=== PATIENT | male | born 1945 | race Caucasian/White ===

== ENCOUNTER 2016-09-06 11:40 | Day surgery (SDC) | payer MEDICARE, OTHER ==
[~2016-09-06] VITALS: Ht 175.3 cm; Wt 87.8 kg
[~2016-09-06 11:40] MED LIST: ASPIRIN 32325 MG/TAB PO; ATIVAN 1MG T1 MG/TAB PO; BYSTOLIC10 MG PO; COZAAR100 MG PO; MAREPA1200 MG PO; MASON NATURAL1200 MG PO; NIACIN PO; NIACIN1 TAB PO; NIACIN500 M4 PO; NITROSTAT0.4 MG/TAB SL; OSTEO-BI-FLEX 21 TAB PO; PRINIVIL20 MG; PROTONIX 40MG T40 MG PO; SLO-NIACIN500 MG PO; VITAMIN D32000 I1 PO; ZOCOR 40MG40 MG PO; ZOCOR40 MG PO
[2016-09-06 12:17] LABS: HEMATOCRIT 43.3 % (42.0-52.0); HEMOGLOBIN 15.2 g/dl (13.5-18.0); MEAN CELL VOLUME 90 fl (80.0-100.0); MEAN CORPUSCULAR HEMOGLOBIN 31 pg (27.0-31.0); MEAN CORPUSCULAR HGB CONC 35 g/dl (33.0-37.0); MEAN PLATELET VOLUME 8.8 fl (7.4-10.4); PLATELET COUNT 253 K/mm3 (130-400); RED BLOOD COUNT 4.84 M/mm3 (4.20-5.60); REDCELL DISTRIBUTION WIDTH-CV 12.3 % (11.5-14.5); WHITE BLOOD COUNT 5.9 K/mm3 (4.8-10.8)
[2016-09-06 12:25] LABS: CALCIUM 9.1 mg/dL (8.4-10.2); CREATININE, serum 0.85 mg/dL (0.66-1.25); POTASSIUM 4.4 mmol/L (3.4-5.0)
[2016-09-06 12:29] LABS: INR 1.1 (0.8-3.0); PROTHROMBIN TIME 12.2 SECONDS (9.7-12.8)
[2016-09-06 12:31] LABS: PARTIAL THROMBOPLASTIN TIME 29.6 SECONDS (26.0-37.0)
[2016-09-06 13:46] VITALS: BP 101/51; PULSE 51; TEMP 97.8
[2016-09-06 16:58] VITALS: BP 123/54; PULSE 66; TEMP 97.8
[2016-09-06] MEDS ORDERED: NORVASC 5MG5 MG/TAB PO (17:33)
[2016-09-06 20:18] VITALS: BP 124/51; PULSE 67; TEMP 97.9
[2016-09-07] VITALS (11 sets, daily range): BP systolic 101–126; BP diastolic 30–62; PULSE 50–72; TEMP 97.8–98.2
== END 2016-09-07 15:14 | disposition home or self-care (01) ==
LOC: SURG 11:40 → SDCO 11:40 → SURG 09-07 11:54 → SDCO 09-07 15:14
PROVIDERS: Internal Medicine Interventional Cardiology
DX: I25.110 Atherosclerotic heart disease of native coronary artery with unstable angina pectoris (principal); R07.89 Other chest pain
CPT/HCPCS: OP; C1760; G0378; G0379; J2250; J3010; J7030; Q9967

== ENCOUNTER → 2016-10-02 | Outpatient (CLI) | payer MEDICARE, OTHER ==
[~2016-10-02] MED LIST changes: +NORVASC 5MG5 MG/TAB PO
== END ==
LOC: COL.PUL 10:56
DX: R06.09 Other forms of dyspnea (principal)

== ENCOUNTER → 2019-07-13 | Outpatient (CLI) | payer MEDICARE, OTHER ==
[~2019-07-13] MED LIST changes: +CATAPRES 0.1MG0.1 MG PO; +LIPITOR 80MG80 MG PO; +LOPRESSOR 225 MG/TAB PO; +NORCO 325 MG-51 TAB PO; +VITAL-D1 TAB PO
[2019-07-13 09:11] LABS: HEMOGLOBIN 15.2 g/dl (13.5-18.0); MEAN CELL VOLUME 89 fl (80.0-100.0); MEAN CORPUSCULAR HEMOGLOBIN 30 pg (27.0-31.0); MEAN CORPUSCULAR HGB CONC 34 g/dl (33.0-37.0); MEAN PLATELET VOLUME 9.5 fl (7.4-10.4); PLATELET COUNT 270 K/mm3 (130-400); RED BLOOD COUNT 5.07 M/mm3 (4.20-5.60); REDCELL DISTRIBUTION WIDTH-CV 12.8 % (11.5-14.5)
[2019-07-13 09:20] LABS: CREATININE, serum 0.74 (0.66-1.25); POTASSIUM 4.2 mmol/L (3.4-5.0)
== END ==
LOC: COL.LAB 08:24
PROVIDERS: Internal Medicine Interventional Cardiology
DX: I49.5 Sick sinus syndrome (principal)

== ENCOUNTER → 2020-01-20 | Outpatient (CLI) | payer MEDICARE, OTHER ==
[2020-01-20 12:05] LABS: HEMATOCRIT 43.6 % (42.0-52.0); HEMOGLOBIN 14.9 g/dl (13.5-18.0); MEAN CELL VOLUME 89 fl (80.0-100.0); MEAN CORPUSCULAR HEMOGLOBIN 31 pg (27.0-31.0); MEAN CORPUSCULAR HGB CONC 34 g/dl (33.0-37.0); MEAN PLATELET VOLUME 9.6 fl (7.4-10.4); PLATELET COUNT 230 K/mm3 (130-400); RED BLOOD COUNT 4.89 M/mm3 (4.20-5.60); REDCELL DISTRIBUTION WIDTH-CV 12.5 % (11.5-14.5)
[2020-01-20 14:08] LABS: ANION GAP 8 mmol/L (7-16); BLOOD UREA NITROGEN 13 mg/dL (9-20); CARBON DIOXIDE 23 mmol/L (22-30); CHLORIDE 106 mmol/L (98-107); CREATININE, serum 0.79 (0.66-1.25); GLUCOSE 103 mg/dL (74-106); POTASSIUM 4.2 mmol/L (3.4-5.0); SODIUM 137 mmol/L (137-145)
[2020-01-20 14:20] LABS: TROPONIN-I < 0.012 ng/mL (0.000-0.035)
== END ==
LOC: COL.LAB 11:01
PROVIDERS: Internal Medicine Interventional Cardiology
DX: R07.89 Other chest pain (principal)

== ENCOUNTER 2021-06-15 10:40 | Day surgery (SDC) | payer MEDICARE, OTHER ==
[2021-06-15] VITALS (9 sets, daily range): BP systolic 115–146; BP diastolic 59–96; PULSE 60–63; TEMP 97.7
[~2021-06-15] VITALS: Ht 175.3 cm; Wt 90.5 kg
[~2021-06-15 10:40] MED LIST changes: +ASPIRIN E.C. 8181 MG PO; +COZAAR 50MG50 MG/TAB PO; -COZAAR100 MG PO; +NORVASC 10MG10 MG PO; -NORVASC 5MG5 MG/TAB PO; -PROTONIX 40MG T40 MG PO; +PROTONIX20 MG PO
[2021-06-15 11:31] LABS: HEMATOCRIT 39.5 % (42.0-52.0); HEMOGLOBIN 13.5 g/dl (13.5-18.0); MEAN CELL VOLUME 89 fl (80.0-100.0); MEAN CORPUSCULAR HEMOGLOBIN 31 pg (27-31); MEAN CORPUSCULAR HGB CONC 34 g/dl (33.0-37.0); MEAN PLATELET VOLUME 8.9 fl (7.4-10.4); PLATELET COUNT 240 K/mm3 (130-400); RED BLOOD COUNT 4.42 M/mm3 (4.20-5.60); REDCELL DISTRIBUTION WIDTH-CV 12.9 % (11.5-14.5)
[2021-06-15] MEDS ORDERED: MASON NATURAL2000 IU PO (11:36)
[2021-06-15] MEDS ORDERED: PLAVIX 75MG TAB75 MG PO (11:37)
[2021-06-15] MEDS ORDERED: IMDUR 60MG60 MG/TAB PO (11:37)
[2021-06-15 11:40] LABS: INR 1.2 (0.8-3.0); PROTHROMBIN TIME 13.3 SECONDS (9.7-12.8)
[2021-06-15 11:43] LABS: PARTIAL THROMBOPLASTIN TIME 27.2 SECONDS (26.0-37.0)
[2021-06-15 11:56] LABS: CALCIUM 8.3 mg/dL (8.4-10.2); CREATININE, serum 0.87 mg/dL (0.72-1.25); POTASSIUM 3.9 mmol/L (3.5-4.5)
--- NOTE | 2021-06-15 14:15 | NUR ---
Pt is back from laboratory specialist, Meño BYRNES at discussing cath results and poc. Report received from Anuradha GLOVER. Pt is awake and alert, pwd, reg and unlabored respirations. TR band to rt wrist, cms intact distal. A-paced on monitor. call light in reach, lunch ordered.
--- NOTE | 2021-06-15 17:10 | NUR ---
Pt is ready for departure. Pt did fine during his recovery. Pt was able to eat some lunch and remained stable throughout. TR band has been deflated without incident. site dressed with bandaid, folded 2x2 and coban. cms remains intact distal. I reviewed dc/rx and fu instructions with pt and his . both verbalized understanding. Pt is up and steady on his feet in his room. IV dc'd with cath intact, dressing applied. To exit via wheelchair.
== END 2021-06-15 18:07 | disposition home or self-care (01) ==
LOC: COL.CAR 10:40
PROVIDERS: Internal Medicine Interventional Cardiology
DX: I25.10 Atherosclerotic heart disease of native coronary artery without angina pectoris (principal); R06.02 Shortness of breath; R94.39 Abnormal result of other cardiovascular function study; I47.1 Supraventricular tachycardia; I10 Essential (primary) hypertension; E78.00 Pure hypercholesterolemia, unspecified; N40.0 Benign prostatic hyperplasia without lower urinary tract symptoms; Z95.0 Presence of cardiac pacemaker; Z79.899 Other long term (current) drug therapy; Z79.82 Long term (current) use of aspirin
CPT/HCPCS: C1769; J1644; J2250; J3010; Q9967

== ENCOUNTER 2021-07-16 16:49 | Emergency (ER) | payer MEDICARE, OTHER ==
[~2021-07-16] VITALS: Ht 175.3 cm; Wt 90.9 kg
[~2021-07-16 16:49] MED LIST changes: +IMDUR 60MG60 MG/TAB PO; +MASON NATURAL2000 IU PO; +PLAVIX 75MG TAB75 MG PO
[2021-07-16 17:09] VITALS: BP 148/66; PULSE 75; TEMP 98.2
[2021-07-16] MEDS ORDERED: CEPHALEXIN500 M1 PO (17:43)
== END 2021-07-16 17:48 | disposition home or self-care (01) ==
LOC: COL.ER 16:49
DX: S61.012A Laceration without foreign body of left thumb without damage to nail, initial encounter (principal); I10 Essential (primary) hypertension; I25.10 Atherosclerotic heart disease of native coronary artery without angina pectoris; Z87.891 Personal history of nicotine dependence; Z79.82 Long term (current) use of aspirin; Z79.899 Other long term (current) drug therapy; W31.2XXA Contact with powered woodworking and forming machines, initial encounter

== ENCOUNTER → 2022-07-25 | Outpatient (CLI) | payer MEDICARE, OTHER ==
[~2022-07-25] MED LIST changes: +CEPHALEXIN500 M1 PO
[2022-07-25 14:28] LABS: BASO % 0.5 % (0.0-2.0); EOS # 0.2 K/mm3 (0.0-0.7); EOS % 5.3 % (0.0-4.0); GRAN # 2.1 K/mm3 (1.4-6.5); GRAN % 51.7 % (42.2-75.2); HEMOGLOBIN 10.9 g/dl (13.5-18.0); LYMPH % 22.9 % (20.0-51.0); MEAN CELL VOLUME 88 fl (80.0-100.0); MEAN CORPUSCULAR HEMOGLOBIN 30 pg (27-31); MEAN CORPUSCULAR HGB CONC 34 g/dl (33.0-37.0); MEAN PLATELET VOLUME 8.4 fl (7.4-10.4); MONO # 0.8 K/mm3 (0.1-0.6); MONO % 19.1 % (1.7-9.3); PLATELET COUNT 262 K/mm3 (130-400); REDCELL DISTRIBUTION WIDTH-CV 14.6 % (11.5-14.5)
[2022-07-25 14:40] LABS: HEMATOCRIT 31.8 % (42.0-52.0)
[2022-07-25 15:18] LABS: ALBUMIN 2.2 gm/dL (3.4-4.8); BILIRUBIN,TOTAL 0.5 mg/dL (0.2-1.2); CALCIUM 8.6 mg/dL (8.4-10.2); CREATININE, serum 0.88 mg/dL (0.72-1.25); POTASSIUM 3.4 mmol/L (3.5-4.5); TOTAL PROTEIN 10.6 gm/dL (6.2-8.1)
== END ==
LOC: COL.RAD 12:35 → COL.LAB 12:35
PROVIDERS: Internal Medicine Interventional Cardiology; Nurse Practitioner
DX: I35.0 Nonrheumatic aortic (valve) stenosis (principal); I51.7 Cardiomegaly; I50.9 Heart failure, unspecified

== ENCOUNTER 2022-08-12 23:57 | Inpatient (IN) | payer MEDICARE, OTHER ==
[~2022-08-12] VITALS: Ht 175.3 cm; Wt 83.9 kg
[~2022-08-12 23:57] MED LIST changes: +K-TAB20 PO; +LASIX 20MG TABL20 MG PO; -LOPRESSOR 225 MG/TAB PO; +TOPROL XL 50MG50 MG PO; +ZOFRAN 4MG T4 MG/TAB PO
[2022-08-13] VITALS (676 sets, daily range): BP systolic 81–130; BP diastolic 36–84; PULSE 67–80; TEMP 97.4–98.1; O2SAT 76–100
[2022-08-13 00:23] LABS: BASO % 0.3 % (0.0-2.0); EOS % 0.3 % (0.0-4.0); GRAN # 5.3 K/mm3 (1.4-6.5); GRAN % 86.1 % (42.2-75.2); HEMOGLOBIN 10.7 g/dl (13.5-18.0); LYMPH # 0.5 K/mm3 (1.2-3.4); LYMPH % 7.3 % (20.0-51.0); MEAN CELL VOLUME 88 fl (80.0-100.0); MEAN CORPUSCULAR HEMOGLOBIN 31 pg (27-31); MEAN CORPUSCULAR HGB CONC 35 g/dl (33.0-37.0); MEAN PLATELET VOLUME 8.9 fl (7.4-10.4); MONO # 0.4 K/mm3 (0.1-0.6); MONO % 5.7 % (1.7-9.3); PLATELET COUNT 215 K/mm3 (130-400); REDCELL DISTRIBUTION WIDTH-CV 15.1 % (11.5-14.5)
[2022-08-13 00:26] LABS: HEMATOCRIT 30.9 % (42.0-52.0)
[2022-08-13 00:42] LABS: BILIRUBIN,TOTAL 0.5 mg/dL (0.2-1.2); CALCIUM 8.4 mg/dL (8.4-10.2); CREATININE, serum 1.14 mg/dL (0.72-1.25); POTASSIUM 3.3 mmol/L (3.5-4.5); TOTAL PROTEIN 9.5 gm/dL (6.2-8.1)
[2022-08-13 00:49] LABS: TROPONIN-I 0.055 ng/mL (0.00-0.033)
--- NOTE | 2022-08-13 08:06 | NUR ---
Pt laying in bed. Critical troponin level of 0.[address] Samayoa. Pt denies CP or SOB at this time. Pt noted to have low BP 86/39 and HR of 72, Dr. Samayoa aware. EKG and 250mL bolus of NS now on order. Pt remains on 5L per NC with O2 sat WNL of 94%. IV site in R hand patent, no edema or redness. Morning medications adminsitered per eMAR. Call light within reach.
[2022-08-13 10:40] LABS: PARTIAL THROMBOPLASTIN TIME 38.9 SECONDS (26.0-37.0)
--- NOTE | 2022-08-13 11:51 | NUR ---
Report given to ADALBERTO Dumas. Pt transferred to ICU room 08.
--- NOTE | 2022-08-13 12:15 | NUR ---
1215 DR. WYATT HERE TO PLACE CENTRAL LINE.
--- NOTE | 2022-08-13 12:15 | NUR ---
1138 PT FROM MEDICAL FLOOR TO ICU ROOM 8. PT IS ALERT AND ORIENTED. OXYGEN 5L NC ON ARRIVAL HOWEVER PT OXYGEN WAS LOW 80'S. RT CALLED, HIGH FLOW NC PLACED ON 9L. OXYGEN AT 93%.
[2022-08-14] VITALS (216 sets, daily range): BP systolic 99–134; BP diastolic 47–55; PULSE 64–79; TEMP 97.5–98.3; O2SAT 93–100
[2022-08-14 05:55] LABS: CALCIUM 8.1 mg/dL (8.4-10.2); CREATININE, serum 1.67 mg/dL (0.72-1.25); POTASSIUM 3.8 mmol/L (3.5-4.5)
[2022-08-14 06:09] LABS: MAGNESIUM 1.3 mg/dL (1.6-2.6)
--- NOTE | 2022-08-14 09:32 | NUR ---
Initial visit; Patient stated that his took care of calling catholic and everyone else. He thanked Computerized [employer] Recorder and states that he is waiting for tests to know what is going on with his body. He says he is feeling better than he felt when he came in and thanked [employer] Recorder for visit.[employer] Recorder will follow up.
[2022-08-14 09:33] LABS: MEAN CELL VOLUME 89 fl (80.0-100.0); MEAN CORPUSCULAR HGB CONC 35 g/dl (33.0-37.0); MEAN PLATELET VOLUME 9.3 fl (7.4-10.4); PLATELET COUNT 185 K/mm3 (130-400); RED BLOOD COUNT 2.68 M/mm3 (4.20-5.60); REDCELL DISTRIBUTION WIDTH-CV 15.7 % (11.5-14.5)
[2022-08-14 09:37] LABS: HEMATOCRIT 23.9 % (42.0-52.0); HEMOGLOBIN 8.4 g/dl (13.5-18.0); MEAN CORPUSCULAR HEMOGLOBIN 31 pg (27-31)
[2022-08-14 10:08] LABS: BAND 9 % (0-10); EOSINOPHIL 2 % (0-4); LYMPHOCYTE 4 % (20.0-51.0); NEUTROPHILS 82 % (42.0-75.2)
[2022-08-14 10:09] LABS: BURR CELLS 2+
[2022-08-14 10:10] LABS: ANISOCYTOSIS 1+; PLATELET ESTIMATE NORMAL (NORMAL)
--- NOTE | 2022-08-14 10:41 | NUR ---
BEDSIDE REPORT RECEIVED FROM ADALBERTO GUARDADO. PT RESTING IN BED, VSS, O2 SAT 97% ON 4L/NC. HEPARIN DRIP INFUSING ORDERED TO RIJ TRIPLE LUMEN. PT DENIES NEEDS AT THIS TIME, CALL LIGHT IN REACH.
--- NOTE | 2022-08-14 14:40 | NUR ---
SW met with patients Ericka ([phone]) and daughter Jessica ([phone]) and patient at bedside to complete intake. Patient lives at home with his in [place]. Per Ericka, patient is fully independent with his ADL's and IADL's and has no home oxygen needs, however patient is utilizing oxygen at rest during this stay. Patient does not utilize any DME to assist with mobility. PCP is Dr. Burris and the patient sees Dr. Concepcion for cardiology and Dr. Morris for oncology. Patient utilizes [facility] pharmacy in [place] for prescriptions. Per Ericka, patient does have a DPOA-HC established listed herself and Jessica but has a copy of it at home. Patient scheduled to transfer to the medical floor later today.
--- NOTE | 2022-08-14 15:09 | NUR ---
PT UP TO ROOM 311 FROM ICU ROOM 8. PT TRANSFERS FROM WHEELCHAIR TO MEDICAL BED WITHOUT INCIDENT. PT IS ALERT AND ORIENTED. DENIES PAIN OR ANY NEEDS. PT LUNG SOUNDS RHONCHI THROUGHOUT. PT ON 3L ON HIGH FLOW NC TOLERATING WELL. SPO2 WNL. PT HAS CALL LIGHT AND VERBALIZES UNDERSTANDING OF USE. DAUGHTER AND MOM BEDSIDE.
--- NOTE | 2022-08-14 19:19 | NUR ---
AUDIBLES EXP WHEEZES HEARD UPON ARRIVAL INTO ROOM. PATIENT ASSESSED AND TX INITIATED. MINIMAL IMPROVEMENT IN BREATH SOUNDS S/P NEBULIZER. PRESENTED TO RN STATION TO ASK DAMIEN RN IF PT HAS BEEN GIVEN ANY LASIX RECENTLY. RECOMMENDED TO RN LASIX FOR PT DUE TO SIGNS OF FLUID OVERLOAD. PT PLACED BACK ON 3L HFNC AFTER TREATMENT. CALL LIGHT WITHIN REACH. NAME WRITTEN ON BOARD.
--- NOTE | 2022-08-14 21:43 | NUR ---
AT THE BEGINNING OF THE SHIFT RT NOTIFIED RN THAT THE PATIENT SOUNDED WET AND THAT IT COULD BE LIKE THE PATIENT WAS FLUID OVERLOADED. RN DID LOOK INTO THE PATIENTS HISTORY AND PATIENT DID HAVE A HISTORY OF HEART FAILURE. PTS LEGS BILATERALLY SWOLLEN WITH NO PITTING EDEMA. LUNG SOUNDS RONCHI THROUGHOUT DIMINISHED IN THE BASES. RN NOTIFIED Stella BREWER. CIVIL ENGINEERING DESIGNER ASKED FOR UPDATED BLOOD PRESSURE AND OXYGEN REQUIREMENTS ON PATIENT. RN GOT VITAL SIGNS ON PATIENT AND UPDATED CIVIL ENGINEERING DESIGNER. NS CURRENTLY INFUSING AT 75. THOSE STOPPED PER CIVIL ENGINEERING DESIGNER AND 20 OF LASIX ORDERED. RN COMPLETED PTS ASSESSMENT AT THIS TIME. RN ABLE TO HEAR PTS RESPIRATORY RONCHI FROM BEDSIDE WITHOUT AUSCULTATION. PT STATES THAT IT FEELS LIKE HE HAS LOTS OF PRESSURE ON HIS CHEST BUT DOES NOT HAVE ANY CHEST PAIN. PT AMBULATED TO THE RESTROOM WITH STAND BY ASSIST, PT WOULD BE ABLE TO AMBULATE IND IF NOT FOR THE IV POLE. PT ABLE TO HAVE BOWEL MOVEMENT. PT GIVEN PRN PAIN MEDICATION AND NIGHT TIME MEDICATION PT REPORTS PAIN AT A 5/10 GENERALIZED AT THIS TIME. WATER REFILLED. NO NEW REQUESTS AT THIS TIME
--- NOTE | 2022-08-15 02:17 | NUR ---
PT HAD IV IN RIGHT HAND. WHEN PATIENT WAS ATTEMPTING TO GET TO THE EDGE OF THE BED TO GET READY TO GET HELP TO THE RESTROOM HE BUMPED THE IV AND THE IV CAME OUT CAUSING HIM TO BLEED. THE PATIENT APPLIED PRESSURE BUT DID BLEED FOR A LITTLE WHILE BEFORE HE WAS ABLE TO GET THE CALL LIGHT. PT WAS NOT LIGHT HEADED. BLOOD CLEANED UP BY STAFF BEDDING CHANGED. PRESSURE APPLIED TO PTS HAND AND DRESSING APPLIED. PTS IJ DRESSING ALSO STARTING TO COME OFF NEW IJ DRESSING PLACED BY THIS RN.
[2022-08-15 03:42] VITALS: BP 130/49; PULSE 63; TEMP 97.4
[2022-08-15 06:18] LABS: MEAN CELL VOLUME 92 fl (80.0-100.0); MEAN CORPUSCULAR HGB CONC 33 g/dl (33.0-37.0); MEAN PLATELET VOLUME 9.9 fl (7.4-10.4); PLATELET COUNT 206 K/mm3 (130-400); RED BLOOD COUNT 2.63 M/mm3 (4.20-5.60); REDCELL DISTRIBUTION WIDTH-CV 15.8 % (11.5-14.5)
[2022-08-15 06:22] LABS: HEMATOCRIT 24.3 % (42.0-52.0); MEAN CORPUSCULAR HEMOGLOBIN 30 pg (27-31)
[2022-08-15 06:36] LABS: CREATININE, serum 1.25 mg/dL (0.72-1.25); POTASSIUM 3.7 mmol/L (3.5-4.5)
[2022-08-15 06:54] LABS: ANISOCYTOSIS 1+; BAND 22 % (0-10); LYMPHOCYTE 3 % (20.0-51.0); NEUTROPHILS 75 % (42.0-75.2); PLATELET ESTIMATE NORMAL (NORMAL)
[2022-08-15 06:56] LABS: BURR CELLS 1+
[2022-08-15 08:21] VITALS: BP 112/44; PULSE 64; TEMP 97.6
[2022-08-15 08:22] LABS: PATHOLOGY DIFF REVIEW OK
[2022-08-15 11:45] VITALS: BP 114/55; PULSE 63; TEMP 97.7
[2022-08-15 13:40] LABS: COLLECTION METHOD CLEAN CATCH
[2022-08-15 13:50] LABS: PH 5.5 (5.0-8.5); URINE APPEARANCE Clear (CLEAR/HAZY); URINE BLOOD Negative (NEGATIVE); URINE COLOR Yellow (YELLOW); URINE GLUCOSE Negative (NEGATIVE); URINE KETONE Negative (NEGATIVE); URINE NITRATE Negative (NEGATIVE); URINE PROTEIN(semi-quant) 2+ (NEGATIVE); URINE UROBILINOGEN 0.2 E.U/dL (0.2-1.0)
[2022-08-15 13:54] LABS: SQUAMOUS EPITHELIAL 0-2 /hpf (0-10); URINE BACTERIA None Seen /hpf (NONE SEEN); URINE RBC 0-2 /hpf (0-2)
[2022-08-15 15:21] VITALS: BP 117/49; PULSE 63; TEMP 97.7
[2022-08-15 19:26] VITALS: BP 129/58; PULSE 64; TEMP 97.5
--- NOTE | 2022-08-15 19:46 | NUR ---
PT RESTING IN BED COMFORTABLY. TOLERATING WELL. NO DISTRESS NOTED. NO VOICED COMPLAINTS OR CONCERNS.
--- NOTE | 2022-08-15 23:03 | NUR ---
PATIENT ASSESSED AND GIVEN NIGHTLY MEDICATIONS. HE IS AOX4 AND PLEASANT TO SPEAK WITH. HE CONTINUES ON ZOSYN AND DOXYCYCLINE IV. STILL NEED A STOOL OCCULT. NOTABLE EXT/INS WHEEZES BILATERALLY, BUT MORE PROMINANT IN THE LEFT LUNG. RIGHT IJ WITH BLOOD RETURN/FLUSHES. CONTINUES ON 2L OF OXYGEN. CALL LIGHT IN REACH. BED IN LOWEST POSITION.
[2022-08-15 23:14] VITALS: BP 129/56; PULSE 60; TEMP 97.8
[2022-08-16 03:21] VITALS: BP 132/55; PULSE 62; TEMP 97.9
[2022-08-16 06:19] LABS: BASO % 0.2 % (0.0-2.0); EOS % 0.1 % (0.0-4.0); GRAN # 12.5 K/mm3 (1.4-6.5); GRAN % 89.1 % (42.2-75.2); LYMPH # 0.8 K/mm3 (1.2-3.4); LYMPH % 5.7 % (20.0-51.0); MEAN CELL VOLUME 92 fl (80.0-100.0); MEAN CORPUSCULAR HGB CONC 34 g/dl (33.0-37.0); MEAN PLATELET VOLUME 9.6 fl (7.4-10.4); MONO # 0.6 K/mm3 (0.1-0.6); MONO % 4.4 % (1.7-9.3); PLATELET COUNT 209 K/mm3 (130-400); RED BLOOD COUNT 2.64 M/mm3 (4.20-5.60)
[2022-08-16 06:21] LABS: HEMATOCRIT 24.2 % (42.0-52.0); HEMOGLOBIN 8.2 g/dl (13.5-18.0); MEAN CORPUSCULAR HEMOGLOBIN 31 pg (27-31)
[2022-08-16 06:42] LABS: CALCIUM 8.5 mg/dL (8.4-10.2); CREATININE, serum 1.02 mg/dL (0.72-1.25); POTASSIUM 3.8 mmol/L (3.5-4.5)
[2022-08-16 07:44] VITALS: BP 126/54; PULSE 60; TEMP 97.6
[2022-08-16] MEDS ORDERED: DOXYCYCLINE 10100 MG PO (09:00)
[2022-08-16] MEDS ORDERED: OMNICEF 300MG300 MG PO (09:00)
[2022-08-16] MEDS ORDERED: PLAVIX 75MG TAB75 MG PO (09:01)
[2022-08-16] MEDS ORDERED: TOPROL XL 25MG25 MG PO (09:01)
[2022-08-16] MEDS ORDERED: PREDNISONE20 MG PO (09:02)
[2022-08-16] MEDS ORDERED: COZAAR 25MG25 MG/TAB PO (09:02)
--- NOTE | 2022-08-16 09:19 | NUR ---
CALLED RT TO INFORM THEM WE NEED AN EX OX
--- NOTE | 2022-08-16 11:02 | NUR ---
ANESTHESIA CALLED AND INFORMED BONE MARROW BIOPSY WAS CANCELED BY PATIENTS FAMILY.
--- NOTE | 2022-08-16 11:28 | NUR ---
The patient is to tentatively discharge today. PT worked with the patient and recommends home. An exercise oximetry was ordered and the patient did not qualify for oxygen. SW met with the patient, his , and son to review discharge plan. The patient and his family had no concerns. SW discussed home health services. The patient and his family declined at this time. SW presented and read the IM form outloud to the patient. The patient verbalized understanding and agreement to discharge today. He signed the form and SW provided him with a copy. No additional needs at this time.
[2022-08-16 11:58] VITALS: BP 117/54; PULSE 60; TEMP 98.3
--- NOTE | 2022-08-16 12:15 | NUR ---
PATIENT GIVEN DISCHARE INSTRUCTIONS AND EDUCATION PROVIED. ALL NEW/CHANGED/AND STOPPPED MEDICATIONS REVIEWE WITH THE PATIENT. PATIENT VERBALIZES UNDERSTANDING. CALL LIGHT WITHIN REACH. FAMILY AT BEDSIDE.
--- NOTE | 2022-08-16 12:35 | NUR ---
PATIENTS CENTRAL LINE PULLED PER POLICY. PATIENT FLAT TIME ENDS AT 1309
--- NOTE | 2022-08-16 13:50 | NUR ---
PATIENT TAKEN TO [facility] VIA WHEELCHAIR BY THIS RN, PATIENT LEFT IN STABLE OCNDITION WITH AYAKA BOCANEGRAGALE AND ALL HIS BELONGINGS. PATIENT CENTRAL LINE REMOVAL SITE CDI.
== END 2022-08-16 13:51 | disposition home or self-care (01) | DRG 871 ==
LOC: COL.ER 23:57 → MEDICAL 08-13 02:34 → ICU 08-13 02:34 → MEDICAL 08-14 14:53
PROVIDERS: Emergency Medicine; Internal Medicine Pulmonary Disease; Physician Assistant; ADMIT Student in an Organized Health Care Education/Training Program
DX: A41.9 Sepsis, unspecified organism (principal); I21.4 Non-ST elevation (NSTEMI) myocardial infarction; R65.21 Severe sepsis with septic shock; J96.01 Acute respiratory failure with hypoxia; J18.1 Lobar pneumonia, unspecified organism; N17.9 Acute kidney failure, unspecified; E87.1 Hypo-osmolality and hyponatremia; M84.48XA Pathological fracture, other site, initial encounter for fracture; I50.42 Chronic combined systolic (congestive) and diastolic (congestive) heart failure; I95.9 Hypotension, unspecified; K21.9 Gastro-esophageal reflux disease without esophagitis; I71.43 Infrarenal abdominal aortic aneurysm, without rupture; E83.42 Hypomagnesemia; E87.6 Hypokalemia; I25.10 Atherosclerotic heart disease of native coronary artery without angina pectoris; I11.0 Hypertensive heart disease with heart failure; D72.829 Elevated white blood cell count, unspecified; T38.0X5A Adverse effect of glucocorticoids and synthetic analogues, initial encounter; D64.9 Anemia, unspecified; E87.70 Fluid overload, unspecified; I44.0 Atrioventricular block, first degree; Z20.822 Contact with and (suspected) exposure to COVID-19; I49.5 Sick sinus syndrome; Z23 Encounter for immunization; Z79.82 Long term (current) use of aspirin; Z95.5 Presence of coronary angioplasty implant and graft; Z95.0 Presence of cardiac pacemaker
CPT/HCPCS: A9284; C1751; J1644; J1650; J1940; J2543; J3475; J3480; J7030; J7050; J7060; J7120; J7512; Q9967

== ENCOUNTER 2022-09-09 06:57 | Outpatient (CLI) | payer MEDICARE, OTHER ==
[~2022-09-09] VITALS: Ht 175.3 cm; Wt 81.5 kg
[~2022-09-09 06:57] MED LIST changes: +COZAAR 25MG25 MG/TAB PO; +DOXYCYCLINE 10100 MG PO; +OMNICEF 300MG300 MG PO; +PREDNISONE20 MG PO; +TOPROL XL 25MG25 MG PO
[2022-09-09 08:01] VITALS: BP 158/49; PULSE 63; TEMP 98.3
[2022-09-09 08:24] LABS: BASO % 0.2 % (0.0-2.0); EOS # 0.3 K/mm3 (0.0-0.7); EOS % 7.9 % (0.0-4.0); GRAN # 2.7 K/mm3 (1.4-6.5); GRAN % 62.5 % (42.2-75.2); HEMOGLOBIN 10.6 g/dl (13.5-18.0); LYMPH # 0.6 K/mm3 (1.2-3.4); LYMPH % 14.1 % (20.0-51.0); MEAN CELL VOLUME 90 fl (80.0-100.0); MEAN CORPUSCULAR HEMOGLOBIN 31 pg (27-31); MEAN CORPUSCULAR HGB CONC 35 g/dl (33.0-37.0); MEAN PLATELET VOLUME 8.5 fl (7.4-10.4); MONO # 0.6 K/mm3 (0.1-0.6); MONO % 14.8 % (1.7-9.3); PLATELET COUNT 187 K/mm3 (130-400); RED BLOOD COUNT 3.42 M/mm3 (4.20-5.60); REDCELL DISTRIBUTION WIDTH-CV 17.1 % (11.5-14.5)
[2022-09-09 08:25] LABS: HEMATOCRIT 30.7 % (42.0-52.0)
[2022-09-09 09:30] VITALS: BP 130/53; PULSE 64; TEMP 97.2
--- NOTE | 2022-09-09 09:30 | NUR ---
0930 PATIENT RETURNS TO ROOM 5 VIA CART. PATIENT IS ALERT AND ORIENTED. RESPIRATIONS EVEN AND UNLABORED, ON ROOM AIR. VITAL SIGNS OBTAINED. PATIENT DOES NOT HAVE ANY PAIN AT THIS TIME. 4X4 WITH BAND AID TO UPPER LEFT BUTTOCK, CDI. PATIENT IN ROOM. PATIENT REQUESTED WATER AND A MUFFIN, NO DIFFICULTIES SWALLOWING. 1000 IV DISCONTINUED FROM LEFT HAND WITH NO DIFFICULTIES. 1025 DISCHARGE INSTRUCTIONS REVIEWED WITH PATIENT AND PATIENT . BOTH VERBALIZED UNDERSTANDING. 1030 PATIENT DISCHARGES FROM UNIT VIA WHEELCHAIR IN STABLE CONDITION. PATIENT IS DRIVING PATIENT HOME.
[2022-09-09 09:45] VITALS: BP 148/62; PULSE 63
[2022-09-09 10:00] VITALS: BP 129/46; PULSE 60
== END 2022-09-09 10:30 | disposition home or self-care (01) ==
LOC: SDCO 06:57
PROVIDERS: Pathology Anatomic Pathology & Clinical Pathology
DX: C90.00 Multiple myeloma not having achieved remission (principal); I25.10 Atherosclerotic heart disease of native coronary artery without angina pectoris; I10 Essential (primary) hypertension; F17.210 Nicotine dependence, cigarettes, uncomplicated
CPT/HCPCS: J2704; J7120

== ENCOUNTER → 2023-12-05 | Outpatient (CLI) | payer MEDICARE, OTHER ==
[~2023-12-05] MED LIST changes: +B-12 500 MCG PO; +DECADRON 4MG TAB4 MG PO; +EPA FISH OIL1 SGL PO; +Gadoterate 20 ML VIAL IV ONE; +REVLIMID15 MG; +VITAMIN D31000 IU PO
== END ==
LOC: COL.RAD 10:42
DX: M89.9 Disorder of bone, unspecified (principal); M48.07 Spinal stenosis, lumbosacral region; C90.00 Multiple myeloma not having achieved remission
CPT/HCPCS: A9575